=== PATIENT | female | born 1945 | race Caucasian/White ===

== ENCOUNTER → 2023-10-01 15:50 | Outpatient (REF) | payer OTHER, SELFPAY | LOC: RAD 15:50 | PROVIDERS: ATTENDING PHYSICIAN Nurse Practitioner Family | DX: R47.89 Other speech disturbances (principal); G45.9 Transient cerebral ischemic attack, unspecified | CPT/HCPCS: 70450 ==

== ENCOUNTER → 2023-10-21 10:41 | Outpatient (REF) | payer OTHER, SELFPAY | LOC: HWRAD 10:41 | PROVIDERS: ATTENDING PHYSICIAN Nurse Practitioner Family; FAMILY PHYSICIAN Internal Medicine | DX: R47.89 Other speech disturbances (principal); R09.89 Other specified symptoms and signs involving the circulatory and respiratory systems | CPT/HCPCS: 93880 ==

== ENCOUNTER → 2023-11-05 10:50 | Outpatient (REF) | payer OTHER, SELFPAY | LOC: HWRCS 10:50 | PROVIDERS: ATTENDING PHYSICIAN Internal Medicine | DX: G45.9 Transient cerebral ischemic attack, unspecified (principal) | CPT/HCPCS: 93306 ==

== ENCOUNTER → 2023-12-05 14:17 | Outpatient (REF) | payer OTHER, SELFPAY | LOC: PAVMRI 14:17 | PROVIDERS: ATTENDING PHYSICIAN Internal Medicine | DX: G45.9 Transient cerebral ischemic attack, unspecified (principal) | CPT/HCPCS: 70544 ==

== ENCOUNTER → 2024-04-06 11:11 | Outpatient (REF) | payer OTHER, SELFPAY | LOC: WDC 11:11 | PROVIDERS: ATTENDING PHYSICIAN Internal Medicine | DX: Z12.31 Encounter for screening mammogram for malignant neoplasm of breast (principal) | CPT/HCPCS: 77063; 77067 ==

== ENCOUNTER 2024-05-05 12:53 | Inpatient (IN) | payer OTHER, SELFPAY ==
[2024-05-04 18:44] VITALS: BP 185/103
--- NOTE | 2024-05-04 18:50 | ED.CVA ---
History of Present Illness
General
Chief Complaint: CVA/TIA Symptoms
Source: patient and ambulance crew
Exam Limitations: none
Time Seen by Provider: 05/04/24 18:48
Nursing documentation reviewed up to this point in time: agreed with
Onset of Stroke Symptoms
Onset of symptoms known: Yes
Date of onset of symptoms: 05/04/24
Time of onset of symptoms: 17:55
Time pt last seen normal is known: No
History of Present Illness
History of Present Illness:
78-year-old female presents Emergency Department due to expressive aphasia that began at 1755 today. She notes that is resolving.
Past History
Past History
ED Past Medical History: Other (Headache, pneumonia)
Phy Exam
Physical Exam
Physical Exam:
Physical Exam
General: no apparent distress, not acutely ill
Neck: supple. no meningeal signs. normal posterior pharynx
Heart: s1/s2 regular rate and rhythm, no murmur. equal radial
pulses.
HEENT: Pupils equal round reactive to light, EOMI
Lungs: no acute respiratory distress. clear bilaterally
Abdomen: normal bowel sounds. not tender. no CVAT
Neuro: alert and oriented. no focal neurological deficits cranial nerves II through XII intact
Skin: no rash
Psychiatric: well kept. interactive and cooperative
Extremities: no edema. no calf tenderness. negative homans. good distal pulses
Scores
NIH Stroke Score
Level of Consciousness: 0 - Alert
LOC Questions: 0-Answers both correctly
LOC Commands: 0-Performs both correctly
Best Horizontal Gaze: 0-Normal
Visual Ortez: 0=Normal, no visual loss
Facial Palsy: 0=Normal, symmetrical
Motor - Right Arm: 0=No drift 10 seconds
Motor - Left Arm: 0=No drift 10 seconds
Motor - Right Le-No drift 5 seconds
Motor - Left Le-No drift 5 seconds
Limb Ataxia: 0-Absent
Sensation: 0-Normal
Best Language: 0-No aphasia
Dysarthria: 0-Normal
Extinction and Inattention: 0-No abnormality
Total Score:: 0
Course
Orders/Labs/Results
Orders:
Orders
05/04/24 18:46
Basic Metabolic Panel Urgent
Complete Blood Count/With Diff Urgent
PT/INR [Prothrombin Time] Urgent
PTT Urgent
05/04/24 18:48
Electrocardiogram (*1) Urgent
Reason for Study: TIA/Stroke
EKG- Treatment ONCE
05/04/24 18:49
CT HEAD STROKE ALERT W/o Cont Urgent
Reason For Exam: expressive aphasia
05/04/24 18:54
CT HEAD/NECK ANG STROKE ALERT Urgent
Comment:
Reason For Exam: expressive aphasia
05/04/24 18:58
NEUROLOGY CONSULT Urgent
Consulting Provider: Elizabeth Barahona
Was physician already notified: Yes
Reason for consult: expressive aphasia
Abnormal Lab Results
05/04/24
18:46
Glucose 165 H mg/dl
(70-99)
05/04/24 18:46
05/04/24 18:46
Vital Signs
Initial and Last Documented VS:
Initial Vital Signs
Temp
97.9 F
05/04/24 18:42
Last Documented Vital Signs
Temp Pulse Resp BP Pulse Ox
97.9 F 89 15 185/103 97
05/04/24 18:42 05/04/24 19:00 05/04/24 19:00 05/04/24 18:44 05/04/24 19:00
MDM/Problems Addressed
Differential Diagnosis Includes:
CVA, TIA
MDM/Problems Addressed:
78 yo female with TIA. Symptoms resolved. Admit for further evaluation.
Chronic conditions affecting care: HTN
Acute Exacerbation and/or Progression of Chronic Illness: HTN
*Radiology
Radiology exam reviewed: radiology read reviewed (CT head and CT angiography no acute findings)
*Pulse Oximetry
Patient hypoxic: no
*EKG
Interpreted by ED Provider?: Yes
EKG Intrepretation Date: 05/04/24
EKG Intrepretation Time: 19:17
Interpretation: normal
Comparison EKG: no changes
Heart Rate: 90
Rate: normal
Rhythm: sinus
[place]: normal axis
Interval: normal interval
QRS Pattern: normal QRS
Ischemia: no ischemia
*Resource Recovery Engineer Interpretation
Rate: normal
Interpretation: normal
Heart Rate: 88
Rhythm: sinus
*Critical Care Note
Total Time (30-74mins, 75-104mins- exclusive of procedures): 30
comment:
Critical care statement: A total of 30 minutes of critical care time was provided for this patient. This includes management of unstable vital signs, evaluation of the patient at bedside, reviewing the patient's pertinent medical records, discussion
with consultants, review of old EKGs and review of pertinent medical records. This time with separate from time utilized to perform the aforementioned documented procedures. Patient was initially a stroke alert.
Data Reviewed
Review of Other/Old Records Reveals: Testing (LVEF 60% on November 05, 2023)
Source: records
Prescriptions/Medications Considered But Not Given:
tnk considered, not indicated
Patient Management
Social determinants of health affecting care: Living situation
Discussion with other providers: Hospitalist and Accounting Associate (Neurology, Dr. Barahona recommends admission)
Escalation/DeEscalation of care consider admission/obs:
Admit indicated
ED Attending Note
-
Portions of this chart may have been created with voice recognition software.� Occasional wrong word or��sound alike� substitutions may have occurred due to the inherent limitations of voice recognition software.
Discharge Plan
Departure
Patient Disposition: Admit
Date of Disposition: 05/04/24
Time of Disposition: 19:40
Admit to: Telemetry
Presentation/result/management discussed w/ accepting MD/DO: Hospitalist
Patient with high blood pressure during this ER visit?: Yes
Condition: Good
Discharge Problem:
Transient ischemic attack
Prescriptions:
No Action
losartan 50 mg Tablet
50 mg PO DAILY
atorvastatin 40 mg Tablet
40 mg PO DAILY
Theragen Tablet
1 tab PO DAILY
glimepiride 4 mg Tablet
4 mg PO DAILY
aspirin 81 mg Tablet,Chewable
81 mg PO DAILY
metformin 500 mg Tablet Extended Release 24 Hr
1,000 mg PO BID
glucosamine-chondroitin [Osteo Bi-Flex] 250-200 mg Tablet
2 tab PO DAILY
hydrochlorothiazide 12.5 mg Tablet
12.5 mg PO DAILY
insulin glargine [Lantus Solostar U-100 Insulin] 100 unit/mL (3 mL) Insulin Pen
16 unit SC DAILY
Referrals:
Javier Ford DO [Family Provider] -
Interventions
Interventions:
*Risk Screen - Suicide Last Done: 05/04/24 18:42
*General Assessment Last Done: 05/04/24 18:42
*Neglect/Abuse Screening Last Done: 05/04/24 18:42
*ED COVID-19 Vaccine History Last Done: 05/04/24 18:42
ED- Pulmonary Assessment Last Done: 05/04/24 19:11
ED- Neurological Assessment Last Done: 05/04/24 19:11
ED- Cardiac Assessment Last Done: 05/04/24 19:11
Discharge Date and Time
Print Language: SRI LANKAN
[2024-05-04 19:25] LABS: % Basophils 0.5 % (0-2); % Immature Granulocytes 0.1 % (0-0.5); % Lymphocytes 44.7 % (20.5-51.1); % Monocytes 5.4 % (1.7-9.3); % Neutrophils 47.9 % (42.2-75.2); Absolute Eosinophils 0.1 10^3/uL (0-0.7); Absolute Lymphocytes 3.2 10^3/uL (1.2-3.4); Absolute Monocytes 0.3 10^3/uL (0.1-0.6); Hematocrit 45.2 % (37.0-47.0); Mean Corpuscular Volume 84.7 fL (81.0-99.0); Nucleated Red Blood Cells % 0 %; Red Blood Cell Count 5.29 10^6/uL (4.20-5.40); Red Cell Dist. Width 14.1 % (11.5-14.5); White Blood Cell Count 6.3 10^3/uL (4.8-10.8)
[2024-05-04 19:28] LABS: Blood Urea Nitrogen 16 mg/dl (7-17); Carbon Dioxide 30 mmol/L (22-30); Chloride 101 mmol/L (98-107); Glucose 165 mg/dl (70-99); Sodium 138 mmol/L (135-145); eGFR > 60.00
[2024-05-04 19:36] VITALS: BP 172/88
[2024-05-04 20:00] VITALS: BP 187/77
[2024-05-04 20:39] LABS: INR 0.86; PT 12.1 Sec (11.4-14.6)
[2024-05-04 20:40] LABS: APTT 26.8 Sec (23.4-35.0)
--- NOTE | 2024-05-04 21:52 | HPS.HSE ---
Family Physician
-
Family Physician: Javier Ford
Chief Complaint
-
Word finding difficulty
History of Present Illness
Patient is an 78y F with PMH significant for hypertension and DM-II who presents to ED complaining of word-finding difficulty this evening. History obtained from patient and her son (who was present at the time of symptoms). Patient states that
she has been feeling well of late. Around 5:30 PM she was speaking with her son when she suddenly was unable to produce speech. She states she could not think of her words. Son states that symptoms lasted for about 20 minutes before resolving.
Patient denies any new associated numbness, tingling, weakness, vision changes, headache, etc.
Patient is currently at baseline / symptom-free in the ED.
Patient reports a similar episode in September of this year. This lasted for about 3-5 minutes before resolving. She did not seek medical attention at that time; however, she did discuss this with her PCP after the fact and had evaluation for possible
TIA including Echo, [facility] imaging, etc.
MRA of the brain was done which showed 70% R ICA stenosis and 2.4mm L ICA / cavernous aneurysm. She was seen at [facility] for this and follow-up / surveillance imaging was recommended in one year.
Patient also describes an episode of profound weakness at the end of March. She woke feeling very weak and with a sense of impending doom. She went back to sleep and woke 4 hours later feeling improved. Again, she did not seek medical
attention at that time. Patient states that she has had paresthesias of the R 1st and 2nd digits and the R side of the mouth / lips since that event.
Medical History
Past Medical History
Past Medical History: Reports Other
Additional Past Medical History:
Hypertension
DM-II
Aphasia / TIA
Past Surgical History: Reports Other
Additional Past Surgical History:
Bilateral Wrist Surgery
Right Shoulder Surgery
Bilateral Lumpectomies (benign)
Tubal Ligation
Skin Cancer Excision / Face
Social History
Tobacco: Former Smoker (Quit smoking 40 years ago. Approx 20 pack years total use.)
Alcohol: Occasional
Drug: None
Family History
Family History: Not pertinent
Allergies / Home Medications
Allergies reflects when Allergies were last updated in [facility].
Home Medications with original date entered in [facility]
Allergy/Medication List:
Allergies
Allergy/AdvReac Type Severity Reaction Status Date / Time
hydromorphone Allergy Unknown Verified 05/04/24 19:02
lisinopril Allergy Unknown Verified 05/04/24 19:02
niacin Allergy Unknown Verified 05/04/24 19:02
vitamin B complex* Allergy Unknown Verified 05/04/24 19:02
Home Medications
aspirin 81 mg chewable tablet 81 mg PO DAILY 05/04/24
atorvastatin 40 mg tablet 40 mg PO DAILY 05/04/24
glimepiride 4 mg tablet 4 mg PO DAILY 05/04/24
glucosamine-chondroitin 250 mg-200 mg tablet (Osteo Bi-Flex) 2 tab PO DAILY 05/04/24
hydrochlorothiazide 12.5 mg tablet 12.5 mg PO DAILY 05/04/24
insulin glargine 100 unit/mL (3 mL) subcutaneous pen (Lantus Solostar U-100 Insulin) 16 unit SC DAILY 05/04/24
losartan 50 mg tablet 50 mg PO DAILY 05/04/24
metformin 500 mg tablet,extended release 24 hr 1,000 mg PO BID 05/04/24
therapeutic multivitamin 1 tab PO DAILY 05/04/24
Review of Systems
-
History Source: Patient
A 12 point ROS was completed and negative except as noted: Yes
Constitutional: Denies Fever or Chills
EENT: Denies Sore Throat
Respiratory: Denies Cough or Trouble Breathing
Cardiac: Denies Chest Pain or Palpitations
Abdomen/GI: Denies Abdominal Pain, Nausea, Vomiting or Diarrhea
: Denies Dysuria, Frequency or Flank Pain
Musculoskeletal: Denies Joint Pain or Edema
Neurological: Reports Numbness and Other (Speech difficulty); Denies Dizzy, Headache or Weakness
Psych: Denies Depression or Anxiety
Physical Exam
Vital Signs
Vital Signs
Temp Pulse Resp BP Pulse Ox
97.9 F 83 15 187/77 98
05/04/24 18:42 05/04/24 20:45 05/04/24 20:30 05/04/24 20:00 05/04/24 20:45
Physical Exam
General: Other (78y F in no acute distress.)
HEENT: Moist mucous membranes and PERRLA
Respiratory: Clear; No Wheezes, Rales or Rhonchi
Cardiac: S1/S2 and Regular Rhythm; No Murmur
GI: Soft, Non Tender, Non Distended and Normal Bowel Sounds
Musculoskeletal: No Clubbing, No Cyanosis and No Edema
Neuro: AO x 3 and Nonfocal/grossly intact
Psych: No Anxious or Depressed
Laboratory Results
-
05/04/24 18:46
05/04/24 18:46
Laboratory Results
PT 12.1 Sec (11.4-14.6) 05/04/24 20:16
INR 0.86 05/04/24 20:16
APTT 26.8 Sec (23.4-35.0) 05/04/24 20:16
Total Bilirubin Cancelled 05/04/24 18:46
AST Cancelled 05/04/24 18:46
ALT Cancelled 05/04/24 18:46
Alkaline Phosphatase Cancelled 05/04/24 18:46
Impression/Plan
-
A/P: Patient is an 78y F with PMH significant for hypertension and DM-II who presents to ED complaining of episode of word-finding difficulty this evening.
Expressive Aphasia / Word-Finding Difficulty
CVA / TIA
- Observe overnight for further evaluation and treatment.
- Symptom-free at present.
- ASA + Plavix for now.
- Follow for any changes in neurologic exam.
- MRI brain in the AM.
- Neurology evaluation.
- PT / OT / Speech evaluations.
- Check lipids, A1C, etc.
- Adjust meds as needed for adequate BP control.
ASCVD / R ICA Stenosis (70%)
L ICA Aneurysm (2.4mm)
- Lesions not appreciated on today's CTA done in the ED.
- R carotid stenosis not c/w patient's presenting deficit.
- Doubt that small aneurysm nor seen on CTA is related.
- Continue planned follow-up as an outpatient for surveillance.
Benign Hypertension
- Not well-controlled at present.
- Continue home med regimen and adjust as needed for goal of normotension at discharge.
DM-II
- Patient reports hypoglycemic episodes that occur every night - typically between 3-6 AM.
- She has decreased and then eliminated her PM dose of glimepiride with no lasting improvement.
- Would discontinue sulfonylurea entirely.
- Monitor glucose and adjust insulin dosing as needed for adequate control.
- Update A1C.
DVT Prophylaxis: SCDs
Code Status: Full
[2024-05-04 22:00] VITALS: BP 182/87
[2024-05-04 23:03] VITALS: BP 203/108
[2024-05-05] VITALS (9 sets, daily range): BP systolic 119–210; BP diastolic 77–96; PULSE 81; O2SAT 95; BMI 26.1
[2024-05-05 00:56] LABS: Glucose - Point of Care 190 mg/dl (70-99)
[2024-05-05] MEDS: XANAX 0.5 MG PO ×2 (01:23→21:16)
[2024-05-05 05:38] LABS: Hematocrit 40.5 % (37.0-47.0); Hemoglobin 13.1 g/dL (12.0-16.0); Mean Corp Hgb Conc. 32.3 g/dL (33.0-37.0); Mean Corpuscular Hgb 27.6 pg (27.0-31.0); Mean Corpuscular Volume 85.3 fL (81.0-99.0); Mean Platelet Volume 10.6 fL (7.4-10.4); Platelet Count 159 10^3/uL (130-400); Red Blood Cell Count 4.75 10^6/uL (4.20-5.40); Red Cell Dist. Width 14.1 % (11.5-14.5); White Blood Cell Count 7.1 10^3/uL (4.8-10.8)
[2024-05-05 05:53] LABS: Glucose - Point of Care 201 mg/dl (70-99)
[2024-05-05 06:02] LABS: Blood Urea Nitrogen 21 mg/dl (7-17); Carbon Dioxide 29 mmol/L (22-30); Chloride 103 mmol/L (98-107); Estimated Creatinine Clearance 55 ml/min; Glucose 229 mg/dl (70-99); Potassium 3.9 mmol/L (3.5-5.1); Sodium 137 mmol/L (135-145); eGFR > 60.00
[2024-05-05 06:03] LABS: Calcium 9.4 mg/dl (8.4-10.2); HDL Cholesterol 42 mg/dl; LDL Cholesterol, Calculated 55 mg/dl; Total Cholesterol 117 mg/dl (50-199); Triglyceride 100 mg/dl (10-149); Very Low Density Lipoprotein 20 mg/dl (0-30)
[2024-05-05 06:30] LABS: TSH Reflex To Free T4 2.51 uIU/ml (0.47-4.68)
[2024-05-05] MEDS: LIPITOR 40 MG PO (07:54)
[2024-05-05] MEDS: LANTUS 0.16 UNITS SC (07:55)
[2024-05-05] MEDS: COZAAR 50 MG PO ×2 (07:55→12:55)
[2024-05-05] MEDS: PLAVIX 75 MG PO (07:55)
[2024-05-05] MEDS: LOW STRENGTH ASPIRIN 81 MG PO (07:56)
[2024-05-05] MEDS: NOVOLOG FLEXPEN-LOW RESISTANCE 2 UNITS SC ×2 (08:14→12:52)
[2024-05-05 08:39] LABS: Glycohemoglobin (HgbA1c) 8.1 % (4.0-5.6)
[2024-05-05 08:40] LABS: Glucose - Point of Care 124 mg/dl (70-99)
--- NOTE | 2024-05-05 09:05 | PTOTSP ---
Patient independent with all bed mobility, transfers and ambulation. No skilled PT needs, will sign off.
--- NOTE | 2024-05-05 09:10 | CON.NEURO ---
Consultation
Order
Date of Consultation: 05/05/24
Requesting Provider: Jeffery Mckeon DO
Reason for Consult: Expressive aphasia
Neurology Consultation Note.
HPI: This is an 78-year-old RH woman who presented to [facility] on 05/04/2024 with transient language dysfunction.
According to the patient she had transient expressive aphasia lasting for around 20 minutes that started around 5:30 PM on 05/04/2024. No associated motor, sensory, visual deficits.
Ms. Thorpe recalls a similar episode in September of this year lasting for 3-5 minutes. She had outpatient follow-up that showed no acute infarcts and 70% R ICA stenosis and 2.4mm L ICA / cavernous aneurysm.
Ms. Thorpe describes an episode of an acute continues right tongue, lower jaw and R II-III digits numbness that occurred shortly before Thanksgiving. Her glucose at that time was 145. The patient endorses ongoing imbalance as well as ongoing sensory
deficits.
ER VS: 185/103-210/96, 102, afebrile
EKG:NSR, QTc Int : 468 ms
PDMP:Alprazolam 0.5 Mg to 70 tablets filled in on 01/27/2024.
Labs: 165, globin A1c�8.1, normal sodium, creatinine, WBCs, LDL�55.
CT head wo contrast-no acute abnormalities, advanced cerebral and cerebellar cortical atrophy.
CTA head/neck-no hemodynamically significant stenosis including right cavernous ICA or aneurysms.
PMH:HTN, DLP, DM,
PSH: Bilateral cataract surgeries, bilateral lumpectomies, tubal ligation, right shoulder arthroplasty, bilateral wrist surgery,
SH: lives with son, former smoker, retired from [employer]. Denies excessive alcohol use
FH: Not contributory to current presentation.
All: Hydromorphone, lisinopril, niacin, vitamin B complex
ROS:Constitutional: Negative. Negative for chills, fever and unexpected weight change.
HENT: Positive for hearing impairment
Eyes: Negative. Negative for photophobia, pain and visual disturbance.
Respiratory: Negative for cough, choking and shortness of breath.
Cardiovascular: Negative for chest pain, palpitations and leg swelling.
Gastrointestinal: Negative for abdominal pain and vomiting.
Endocrine: Negative. Negative for cold intolerance.
Genitourinary: Negative for dysuria, flank pain and urgency.
Musculoskeletal: Negative for back pain, gait problem, neck pain and neck stiffness.
Skin: Negative for rash.
Allergic/Immunologic: Negative. Negative for immunocompromised state.
Neurological: Positive for right jaw tongue and finger numbness; positive for transient aphasia.
Psychiatric/Behavioral: Negative for behavioral problems, confusion and hallucinations.
General: Well developed. In no acute distress.
Cardio: Regular rate and rhythm without murmur. Extremities are without cyanosis or edema.
Neuro:
Mental Status: Alert, oriented to person, place, and date. Normal attention and recall. Good fund of knowledge. Follows complex requests across the midline. Comprehension, naming, and repetition intact. Immediate recall 3/3.
Cranial Nerves: Pupils are equally round, surgical. EOMs full. Visual guthrie full to confrontation. No ptosis. No nystagmus. V1-V3 intact to light touch and pinprick bilaterally, symmetric. Face symmetric. Impaired hearing AU. The palate
elevated well. SCMs and traps 5/5. Tongue midline. No dysarthria.
Motor: Normal bulk and tone. No pronator or arm drift. Strength 5/5 throughout. No clonus.
Reflexes: Negative grasp bilaterally.
Sensory: Normal vibration at the toes
Coordination: No dysmetria or tremor.
Gait: deferred
Assessment and Plan:
I. Hypertensive emergency
II. Probably MRI negative subacute L thalamic infarct
III. Type 2 DM, suboptimally controlled
-Strict blood pressure control
-Outpatient NCS/EMG of UEs
-Continue DAPT for 3 weeks followed by lifelong aspirin 81 mg once a day
-Continue Lipitor 80 mg once a day
-Optimize glycemic control.
-PT
-Please follow-up TTE
-Cardiology consult, outpatient Holter monitoring
-DVT prophylaxis
-Outpatient neurology follow-up in 2-3 weeks.
I personally reviewed all radiology and labs along with past medical records pertinent to current medical problems. Total time spent in patient care is 60 minutes.
Thank you for allowing us to participate in the care of this patient. We will continue to follow. Please do not hesitate to contact us with any questions or concerns.
Subjective/Objective
Subjective Data
Date of Service: May 05, 2024
Objective Data
Vital Signs
Temp Pulse Resp BP Pulse Ox
36.5 C 84 14 119/80 96
05/05/24 08:09 05/05/24 08:09 05/05/24 08:09 05/05/24 08:09 05/05/24 08:09
Lab Results
05/05/24 05:21
05/05/24 05:21
PT 12.1 Sec (11.4-14.6) 05/04/24 20:16
INR 0.86 05/04/24 20:16
APTT 26.8 Sec (23.4-35.0) 05/04/24 20:16
Sodium 137 mmol/L (135-145) 05/05/24 05:21
Potassium 3.9 mmol/L (3.5-5.1) 05/05/24 05:21
BUN 21 mg/dl (7-17) H 05/05/24 05:21
Glucose 229 mg/dl (70-99) H 05/05/24 05:21
Calcium 9.4 mg/dl (8.4-10.2) 05/05/24 05:21
LDL Cholesterol, Calc 55 mg/dl 05/05/24 05:21
Patient Allergies
hydromorphone Allergy (Verified 05/04/24 19:02)
Unknown
lisinopril Allergy (Verified 05/04/24 19:02)
Unknown
niacin Allergy (Verified 05/04/24 19:02)
Unknown
vitamin B complex* Allergy (Verified 05/04/24 19:02)
Unknown
Medications
-
Active Medications
Generic Name Dose Route Start Last Admin
Trade Name Freq PRN Reason Stop Dose Admin
Acetaminophen 650 mg 05/05/24 00:59
Acetaminophen 325 Mg Tablet PO 06/02/24 00:58
Q4HPRN PRN
Mild Pain / Temp > 101
Alprazolam 0.5 mg 05/05/24 00:59
Alprazolam 0.5 Mg Tablet PO 06/02/24 00:58
HSPRN PRN
Insomnia
Aspirin 81 mg 05/05/24 08:00 05/05/24 07:56
Aspirin 81 Mg Chewable Tablet PO 06/02/24 07:59 81 mg
DAILY JOSUÉ Administration
Atorvastatin Calcium 40 mg 05/05/24 08:00 05/05/24 07:54
Atorvastatin (Lipitor) 40 Mg Tablet PO 06/02/24 07:59 40 mg
DAILY JOSUÉ Administration
Clopidogrel Bisulfate 75 mg 05/05/24 08:00 05/05/24 07:55
Clopidogrel 75 Mg Tablet PO 06/02/24 07:59 75 mg
DAILY JOSUÉ Administration
Dextrose 12.5 grams 05/05/24 00:59
Dextrose 50% (0.5 Grams/Ml) 50 Ml Syringe IV 06/02/24 00:58
[id number] PRN
hypoglycemia
Protocol
Glucagon 1 mg 05/05/24 00:59
Glucagon 1 Mg Vial IM 06/02/24 00:58
PRN PRN
hypoglycemia
Protocol
Insulin Glargine 16 units/ 0.16 mls @ 0 mls/hr 05/05/24 08:00 05/05/24 07:55
Device SC 06/02/24 07:59 0.16 mls
DAILY JOSUÉ Administration
As Directed
Insulin Aspart 0 units 05/05/24 07:30 05/05/24 08:14
Insulin Aspart Low Resistance 300 Units/3 Ml Pen.Injctr SC 06/02/24 07:29 2 units
AC JOSUÉ Administration
Protocol
Losartan Potassium 50 mg 05/05/24 08:00 05/05/24 07:55
Losartan 50 Mg Tablet PO 06/02/24 07:59 50 mg
DAILY JOSUÉ Administration
Sodium Chloride 0 flush 05/05/24 02:00
Sodium Chloride 0.9% (Flush) Syringe IV 06/02/24 01:59
PER PROTOCOL JOSUÉ
Home Medications
�Medication �Instructions �Recorded
aspirin 81 mg chewable tablet 81 mg PO DAILY Blood Clot 05/04/24
Prevention/Tx
atorvastatin 40 mg tablet 40 mg PO DAILY High Cholesterol 05/04/24
glimepiride 4 mg tablet 4 mg PO DAILY Diabetes 05/04/24
glucosamine-chondroitin 250 mg-200 2 tab PO DAILY Supplement 05/04/24
mg tablet (Osteo Bi-Flex)
hydrochlorothiazide 12.5 mg tablet 12.5 mg PO DAILY Blood Pressure 05/04/24
insulin glargine 100 unit/mL (3 16 unit SC DAILY Diabetes 05/04/24
mL) subcutaneous pen (Lantus
Solostar U-100 Insulin)
losartan 50 mg tablet 50 mg PO DAILY Blood Pressure 05/04/24
metformin 500 mg tablet,extended 1,000 mg PO BID Diabetes 05/04/24
release 24 hr
therapeutic multivitamin 1 tab PO DAILY Supplement 05/04/24
Vital Signs and Labs
-
Vital Signs and Labs:
Vital Signs
Temp Pulse Resp BP Pulse Ox
36.5 C 84 14 119/80 96
05/05/24 08:09 05/05/24 08:09 05/05/24 08:09 05/05/24 08:09 05/05/24 08:09
Lab Results
05/05/24 05:21
05/05/24 05:21
PT 12.1 Sec (11.4-14.6) 05/04/24 20:16
INR 0.86 05/04/24 20:16
APTT 26.8 Sec (23.4-35.0) 05/04/24 20:16
Sodium 137 mmol/L (135-145) 05/05/24 05:21
Potassium 3.9 mmol/L (3.5-5.1) 05/05/24 05:21
BUN 21 mg/dl (7-17) H 05/05/24 05:21
Glucose 229 mg/dl (70-99) H 05/05/24 05:21
Calcium 9.4 mg/dl (8.4-10.2) 05/05/24 05:21
LDL Cholesterol, Calc 55 mg/dl 05/05/24 05:21
Medications
-
Medications:
Generic Name Dose Route Start Last Admin
Trade Name Freq PRN Reason Stop Dose Admin
Acetaminophen 650 mg 05/05/24 00:59
Acetaminophen 325 Mg Tablet PO 06/02/24 00:58
Q4HPRN PRN
Mild Pain / Temp > 101
Alprazolam 0.5 mg 05/05/24 00:59
Alprazolam 0.5 Mg Tablet PO 06/02/24 00:58
HSPRN PRN
Insomnia
Aspirin 81 mg 05/05/24 08:00 05/05/24 07:56
Aspirin 81 Mg Chewable Tablet PO 06/02/24 07:59 81 mg
DAILY JOSUÉ Administration
Atorvastatin Calcium 40 mg 05/05/24 08:00 05/05/24 07:54
Atorvastatin (Lipitor) 40 Mg Tablet PO 06/02/24 07:59 40 mg
DAILY JOSUÉ Administration
Clopidogrel Bisulfate 75 mg 05/05/24 08:00 05/05/24 07:55
Clopidogrel 75 Mg Tablet PO 06/02/24 07:59 75 mg
DAILY JOSUÉ Administration
Dextrose 12.5 grams 05/05/24 00:59
Dextrose 50% (0.5 Grams/Ml) 50 Ml Syringe IV 06/02/24 00:58
[id number] PRN
hypoglycemia
Protocol
Glucagon 1 mg 05/05/24 00:59
Glucagon 1 Mg Vial IM 06/02/24 00:58
PRN PRN
hypoglycemia
Protocol
Insulin Glargine 16 units/ 0.16 mls @ 0 mls/hr 05/05/24 08:00 05/05/24 07:55
Device SC 06/02/24 07:59 0.16 mls
DAILY JOSUÉ Administration
As Directed
Insulin Aspart 0 units 05/05/24 07:30 05/05/24 08:14
Insulin Aspart Low Resistance 300 Units/3 Ml Pen.Injctr SC 06/02/24 07:29 2 units
AC JOSUÉ Administration
Protocol
Losartan Potassium 50 mg 05/05/24 08:00 05/05/24 07:55
Losartan 50 Mg Tablet PO 06/02/24 07:59 50 mg
DAILY JOSUÉ Administration
Sodium Chloride 0 flush 05/05/24 02:00
Sodium Chloride 0.9% (Flush) Syringe IV 06/02/24 01:59
PER PROTOCOL JOSUÉ
Home Medications
-
Home Medications
aspirin 81 mg chewable tablet 81 mg PO DAILY Blood Clot Prevention/Tx 05/04/24
atorvastatin 40 mg tablet 40 mg PO DAILY High Cholesterol 05/04/24
glimepiride 4 mg tablet 4 mg PO DAILY Diabetes 05/04/24
glucosamine-chondroitin 250 mg-200 mg tablet (Osteo Bi-Flex) 2 tab PO DAILY Supplement 05/04/24
hydrochlorothiazide 12.5 mg tablet 12.5 mg PO DAILY Blood Pressure 05/04/24
insulin glargine 100 unit/mL (3 mL) subcutaneous pen (Lantus Solostar U-100 Insulin) 16 unit SC DAILY Diabetes 05/04/24
losartan 50 mg tablet 50 mg PO DAILY Blood Pressure 05/04/24
metformin 500 mg tablet,extended release 24 hr 1,000 mg PO BID Diabetes 05/04/24
therapeutic multivitamin 1 tab PO DAILY Supplement 05/04/24
[2024-05-05 11:34] LABS: Glucose - Point of Care 241 mg/dl (70-99)
--- NOTE | 2024-05-05 11:43 | PTOTSP ---
ST Acute Care Evaluations
Pt currently presents with speech, voice, receptive, and expressive language skills that are generally within functional limits with the exception of mild word-finding difficulties. Pt would benefit from HOSTED SERVICES ANALYST tx to learn strategies to help herself
during these anomic moments to help remediate communication breakdowns and reduce her frustration.
Pt also demonstrates fairly functional oropharyngeal swallowing function at this time. Pt would benefit from a brief f/u from HOSTED SERVICES ANALYST team to ensure pt is utilizing compensatory strategies to keep herself safe during mealtimes.
Recommendations:
- Continue with REGULAR SOLIDS (pick softer foods) and THIN LIQUIDS; meds as tolerated.
- General aspiration & reflux precautions: HOB upright; small bites/sips; eat/drink slowly; reduce distractions during meal times.
- HOSTED SERVICES ANALYST to f/u re: diet tolerance, reinforce safe swallowing compensatory strategies.
- HOSTED SERVICES ANALYST to f/u re: tx of anomia.
- Pt would benefit from HOSTED SERVICES ANALYST tx upon d/c at the OP level of care for anomia tx. Please provide RX at time of d/c. Thank you!
--- NOTE | 2024-05-05 12:46 | W.PN.HOSP.TC ---
Today's Communication/Plan
-
see plan
Assessment / Plan
Assessment / Plan
Impression:
Patient is an 78y F with PMH significant for hypertension and DM-II who presents to ED complaining of episode of word-finding difficulty this evening.
Hypertensive emergency.
-Presentation with self-limited episode of expressive aphasia
Concern for TIA/CVA.
Other conditions:
Essential hypertension.
Type 2 diabetes, IDDM.
ASCVD by history
Plan:
Hypertensive emergency
Acute CVA ruled out
Self-limited episode of expressive aphasia.
Stable neurologically since admission with no recurrent symptoms
ECG normal sinus rhythm.
MRI of the brain with no acute findings.
Head and neck CTA on admission with minor calcified plaques, although with no hemodynamically significant stenosis bilaterally. No large vessel occlusion.
Initiated on DAPT with addition of Plavix by neurology. Add PPI if remains on DAPT
Recent echocardiogram 11/10 with LVEF of 60%. No valvular abnormalities.
Continue statin.
Adjust antihypertensive regimen with increasing losartan to 100 mg daily. Resume hydrochlorothiazide.
ASCVD by history with reported right ICA stenosis at 70% and left ICA small aneurysm.
CTA head and neck on admission with no hemodynamically significant stenosis
Benign hypertension as above
Type 2 diabetes IDDM.
Hemoglobin A1c 8.1.
Patient reports frequent episodes of nightly hypoglycemia.
Stop glimepiride.
Continue Lantus at the current dose.
Resume metformin upon discharge, currently off given contrast study.
Continue basal bolus protocol with serial Accu-Cheks monitoring for recurrent hypoglycemia.
Anticipated Discharge: 24 - 48 hours
Subjective/Interval History
-
Date of Service: May 05, 2024
Objective Data
-
Labs:
Laboratory Results
05/05/24
05:21
WBC 7.1
Hgb 13.1
Hct 40.5
Plt Count 159
Sodium 137
Potassium 3.9
Chloride 103
Carbon Dioxide 29
BUN 21 H
Creatinine 0.7
Glucose 229 H
Calcium 9.4
Vital Signs:
Vital Signs
Temp Pulse Resp BP Pulse Ox
99.4 F 79 16 152/86 96
05/05/24 11:30 05/05/24 11:30 05/05/24 11:30 05/05/24 11:30 05/05/24 11:30
I&O
05/04/24 05/05/24 05/06/24
06:59 06:59 06:59
Intake Total 120 / 120
Balance 120 / 120
Physical Exam
-
General: Well Developed and No Apparent Distress
HEENT: Normocephalic, Atraumatic and Moist Mucous Membranes
Respiratory: Clear to Auscultation
Cardiac: Regular Rhythm and S1/S2; Negative Murmur, Rub or Gallop
GI: Soft, Nontender, Nondistended and Normal Bowel Sounds; Negative Organomegaly
Rectal: Deferred by Provider
Musculoskeletal: No Clubbing, No Cyanosis and No Edema
Skin: Negative Rash
Neuro: Nonfocal/Grossly Intact
[2024-05-05] MEDS: PROTONIX 20 MG PO (12:55)
[2024-05-05] MEDS: ORETIC 12.5 MG PO (12:56)
--- NOTE | 2024-05-05 16:21 | CM ---
Alert awake oriented patient who
lives with her son Marciano in a split home with 5 steps to enter and 7 steps to bed/bathroom. She is independent in driving and all activates of daily living.She has no adaptive devices.Offered Vn she declined. Nye explained Copy given . All
questions answered. Pt did not sign Nye.
No VN in past . No SNF hx
Pharmacy [facility]
PCP Dr Ford
PLAN Home with no needs
[2024-05-05 16:32] LABS: Glucose - Point of Care 171 mg/dl (70-99)
[2024-05-05] MEDS: NOVOLOG FLEXPEN-LOW RESISTANCE 1 UNITS SC (17:06)
[2024-05-05 21:31] LABS: Glucose - Point of Care 297 mg/dl (70-99)
[2024-05-06 03:00] VITALS: BP 141/67
[2024-05-06 06:00] VITALS: BMI 26.0
[2024-05-06 07:38] VITALS: BP 119/71
[2024-05-06 07:58] LABS: Glucose - Point of Care 116 mg/dl (70-99)
[2024-05-06] MEDS: NOVOLOG FLEXPEN-LOW RESISTANCE SC (07:58)
[2024-05-06] MEDS: COZAAR 100 MG PO (08:02)
[2024-05-06] MEDS: PROTONIX 20 MG PO (08:02)
[2024-05-06] MEDS: LANTUS 0.16 UNITS SC (08:02)
[2024-05-06] MEDS: LIPITOR 40 MG PO (08:02)
[2024-05-06] MEDS: PLAVIX 75 MG PO (08:02)
[2024-05-06] MEDS: ORETIC 12.5 MG PO (08:02)
[2024-05-06] MEDS: LOW STRENGTH ASPIRIN 81 MG PO (08:02)
--- NOTE | 2024-05-06 09:37 | W.DS.TRANS ---
DC Summary - [employer]
-
Discharge Instructions:
Discharge Diagnosis/Procedures Hypertensive emergency.
-Presentation with self-limited episode of
expressive aphasia
Concern for TIA/CVA.
Other conditions:
Essential hypertension.
Type 2 diabetes, IDDM.
ASCVD by history
Instructions:
Stand-Alone Forms:
Changes to Home Medications: Yes
Discharge Medications:
DC Medications w/original date entered in [employer]
aspirin 81 mg chewable tablet 81 mg PO DAILY Blood Clot Prevention/Tx 05/04/24
atorvastatin 40 mg tablet 40 mg PO DAILY High Cholesterol 05/04/24
glucosamine-chondroitin 250 mg-200 mg tablet (Osteo Bi-Flex) 2 tab PO DAILY Supplement 05/04/24
hydrochlorothiazide 12.5 mg tablet 12.5 mg PO DAILY Blood Pressure 05/04/24
insulin glargine 100 unit/mL (3 mL) subcutaneous pen (Lantus Solostar U-100 Insulin) 16 unit SC DAILY Diabetes 05/04/24
metformin 500 mg tablet,extended release 24 hr 1,000 mg PO BID Diabetes 05/04/24
therapeutic multivitamin 1 tab PO DAILY Supplement 05/04/24
clopidogrel 75 mg tablet 75 mg PO DAILY #20 tabs 05/06/24
losartan 100 mg tablet 100 mg PO DAILY #30 tabs 05/06/24
pantoprazole 20 mg tablet,delayed release 20 mg PO DAILY #30 tabs 05/06/24
Home Medication Changes
DAPT for 21 days
Stop glimepiride
Losartan dose increased
Pending Results: Yes
Additional Pending Results:
Patient will be set up for outpatient Holter monitoring
[2024-05-06 11:29] VITALS: BP 151/81
[2024-05-06 11:46] LABS: Glucose - Point of Care 348 mg/dl (70-99)
[2024-05-06] MEDS: NOVOLOG FLEXPEN-LOW RESISTANCE 4 UNITS SC (11:46)
[2024-05-06 13:35] VITALS: BP 137/83
--- NOTE | 2024-05-06 13:55 | CM ---
MD entered order for discharge.
Pt changed to inpatient IMM letter given explained signed on chart.
Son Marciano will drive her home.
Offered VN she declined need for VN.
PLAN Home no needs
== END 2024-05-06 14:17 | disposition home or self-care (01) | DRG 305 ==
LOC: 3 WEST ACU 12:53
PROVIDERS: ADMITTING PHYSICIAN Hospitalist; ATTENDING PHYSICIAN Internal Medicine; CONSULT PHYSICIAN Psychiatry & Neurology Neurology; EMERGENCY PHYSICIAN Emergency Medicine; FAMILY PHYSICIAN Internal Medicine
DX: I16.1 Hypertensive emergency (principal); R47.01 Aphasia; I10 Essential (primary) hypertension; E11.9 Type 2 diabetes mellitus without complications; I25.10 Atherosclerotic heart disease of native coronary artery without angina pectoris; Z87.891 Personal history of nicotine dependence; Z79.82 Long term (current) use of aspirin; Z79.4 Long term (current) use of insulin; Z79.84 Long term (current) use of oral hypoglycemic drugs; Z88.5 Allergy status to narcotic agent; Z96.611 Presence of right artificial shoulder joint; Z79.899 Other long term (current) drug therapy
CPT/HCPCS: 70450; 70496; 70498; 70551; 80048; 80061; 82962; 83036; 84443; 85025; 85027; 85610; 85730; 92523; 92610; 93005; 97161; 97166; 99291; Q9967

== ENCOUNTER → 2025-02-17 12:26 | Outpatient (REF) | payer OTHER, SELFPAY | LOC: HWRCS 12:26 | PROVIDERS: ATTENDING PHYSICIAN Internal Medicine Cardiovascular Disease; FAMILY PHYSICIAN Family Medicine | DX: R06.02 Shortness of breath (principal) | CPT/HCPCS: 93306 ==